=== PATIENT | male | born 1990 | race Caucasian/White ===

== ENCOUNTER 2023-09-27 00:40 | Emergency (ER) | payer OTHER ==
[~2023-09-27] VITALS: Ht 172.7 cm; Wt 59.4 kg
[2023-09-27 00:44] VITALS: BP 153/103; PULSE 103; RESP 16; TEMP 97.4; O2SAT 98
[2023-09-27] MEDS: NICOTINE TRANSD SYS 7 MG/24 HR PATCH TD ONE (01:49)
[2023-09-27 06:29] VITALS: BP 127/76; PULSE 82; RESP 18; TEMP 98; O2SAT 99
== END 2023-09-27 06:29 | disposition home or self-care (01) ==
LOC: MED 00:40
DX: T40.2X1A Poisoning by other opioids, accidental (unintentional), initial encounter (principal); R11.0 Nausea; Y92.89 Other specified places as the place of occurrence of the external cause
CPT/HCPCS: 99283